=== PATIENT | female | born 1975 | race Caucasian/White ===

== ENCOUNTER 2017-09-23 09:49 | Emergency (ER) | payer OTHER ==
[~2017-09-23] VITALS: Ht 160 cm; Wt 81.7 kg
[~2017-09-23 09:49] MED LIST: ALBU90OI INH; AMOX500 PO; ASPI325 PO; AZIT250 PO; BENZ100A PO; CEPH500 PO; CITA20 PO; CYCL10 PO; DOXY100 PO; ESCI5; HYDACE5 PO; HYDACE5325 PO; IBUP200; IBUP400 PO; IBUP800; IBUP800 PO; META800; METPRE4DP PO; NAPR220 PO; NAPR500 PO; NAPR550 PO; NEOCOLOTSU OT; Naprosyn500 MG PO; Norco 5-325 Ta1 EACH PO; OMEP20ER; OXYACE7.5T PO; PRED20 PO; PROCODE120 PO; PROM25 PO; PSEU120ER PO; Permethrin60 GM TP; RXCEPH500 PO; RXCLIN PO; RXHYD5325 PO; RXOXYACE PO; Valium5 MG PO
[2017-09-23] MEDS ORDERED: Zithromax250 MG PO (11:27)
[2017-09-23] MEDS ORDERED: ALBU90OI INH (11:27)
[2017-09-23] MEDS ORDERED: Zofran8 MG PO (11:28)
== END 2017-09-23 11:34 | disposition home or self-care (01) ==
LOC: ER 09:49
DX: R05 Cough (principal); D89.9 Disorder involving the immune mechanism, unspecified; F17.200 Nicotine dependence, unspecified, uncomplicated; Z91.048 Other nonmedicinal substance allergy status; Z88.2 Allergy status to sulfonamides; Z79.82 Long term (current) use of aspirin; Z79.899 Other long term (current) drug therapy; Z90.710 Acquired absence of both cervix and uterus
CPT/HCPCS: 71046; 94640; 99284

== ENCOUNTER 2020-06-19 12:10 | Emergency (ER) | payer OTHER ==
[~2020-06-19] VITALS: Ht 157.5 cm; Wt 59.0 kg
[~2020-06-19 12:10] MED LIST changes: +KETO10 PO; +Zithromax250 MG PO; +Zofran8 MG PO
[2020-06-19 13:15] LABS: BASOPHILS ABSOLUTE AUTO 0.04 K/mm3 (0.00-0.23); BASOPHILS PERCENT AUTO 1 % (0-2); EOSINOPHILS ABSOLUTE AUTO 0.05 K/mm3 (0.00-0.68); EOSINOPHILS PERCENT AUTO 1 % (0-6); Hematocrit 45.1 % (33.0-51.0); IMMATURE GRAN ABSOLUTE AUTO 0.01 K/mm3 (0.00-0.10); IMMATURE GRAN PERCENT AUTO 0 % (0-1); LYMPHOCYTES ABSOLUTE AUTO 3.03 K/mm3 (0.84-5.20); LYMPHOCYTES PERCENT AUTO 37 % (21-46); MONOCYTES ABSOLUTE AUTO 0.57 K/mm3 (0.16-1.47); MONOCYTES PERCENT AUTO 7 % (4-13); Mean Corpuscular HGB 30.1 pg (26.0-34.0); Mean Corpuscular HGB Conc 33.3 g/dL (31.5-36.5); Mean Corpuscular Volume 91 fL (80-100); Mean Platelet Volume 9.5 fL (9.1-12.4); NEUTROPHILS ABSOLUTE AUTO 4.59 K/mm3 (1.96-9.15); NEUTROPHILS PERCENT AUTO 55 % (41-73); Platelet Count 355 K/mm3 (150-400); RDW Coefficient Variation 12.1 % (11.7-14.2); RDW Standard Deviation 40.1 fL (35.1-46.3); Red Blood Cell Count 4.98 M/mm3 (3.80-5.20); White Blood Cell Count 8.29 K/mm3 (4.00-11.30)
[2020-06-19 13:29] LABS: Alanine Aminotransfer (ALT/SGP 28 U/L (12-78); Albumin, Blood 3.8 g/dL (3.4-5.0); Albumin/Globulin Ratio 1.1 (0.8-1.8); Alk Phos 77 U/L (50-136); Anion Gap 7 mmol/L (6-16); Aspartate Aminotrans (AST/SGOT 21 U/L (12-37); Bilirubin, Total 0.6 mg/dL (0.1-1.0); Blood Urea Nitrogen 6 mg/dL (8-24); Bun/Creatinine Ratio 11.5 (12.0-20.0); CO2, Blood 24 mmol/L (21-32); Calcium, Blood 8.8 mg/dL (8.5-10.1); Chloride, Blood 112 mmol/L (98-108); Creatinine, Blood 0.52 mg/dL (0.40-1.00); Globulin, Blood 3.5 g/dL (2.2-4.0); Glomerular Filtration Rate >60 (60-); Glucose, Blood 96 mg/dL (70-99); Potassium, Blood 3.9 mmol/L (3.5-5.5); Sodium, Blood 143 mmol/L (136-145); Total Protein, Blood 7.3 g/dL (6.4-8.2)
[2020-06-19] MEDS ORDERED: PRED20 PO (15:49)
[2020-06-19] MEDS ORDERED: IBUP800 PO (15:49)
== END 2020-06-19 16:03 | disposition home or self-care (01) ==
LOC: ER 12:10
PROVIDERS: Physician Assistant
DX: R07.9 Chest pain, unspecified (principal); R06.02 Shortness of breath; R91.8 Other nonspecific abnormal finding of lung field; F17.200 Nicotine dependence, unspecified, uncomplicated; Z91.09 Other allergy status, other than to drugs and biological substances; Z88.2 Allergy status to sulfonamides
CPT/HCPCS: 36415; 71046; 71260; 80053; 84484; 85025; 93005; 93010; 96374; 96375; 99285-25; J1885; J2270; J2405; Q9967

== ENCOUNTER 2020-08-20 18:46 | Emergency (ER) | payer OTHER ==
[~2020-08-20] VITALS: Ht 157.5 cm; Wt 54.9 kg
[2020-08-20 19:44] LABS: BASOPHILS ABSOLUTE AUTO 0.08 K/mm3 (0.00-0.23); BASOPHILS PERCENT AUTO 1 % (0-2); EOSINOPHILS ABSOLUTE AUTO 0.09 K/mm3 (0.00-0.68); EOSINOPHILS PERCENT AUTO 1 % (0-6); Hematocrit 43.4 % (33.0-51.0); Hemoglobin 14.3 g/dL (11.5-16.0); IMMATURE GRAN ABSOLUTE AUTO 0.02 K/mm3 (0.00-0.10); IMMATURE GRAN PERCENT AUTO 0 % (0-1); LYMPHOCYTES ABSOLUTE AUTO 2.71 K/mm3 (0.84-5.20); LYMPHOCYTES PERCENT AUTO 33 % (21-46); MONOCYTES ABSOLUTE AUTO 0.45 K/mm3 (0.16-1.47); MONOCYTES PERCENT AUTO 6 % (4-13); Mean Corpuscular HGB 30.1 pg (26.0-34.0); Mean Corpuscular HGB Conc 32.9 g/dL (31.5-36.5); Mean Corpuscular Volume 91 fL (80-100); Mean Platelet Volume 9.4 fL (9.1-12.4); NEUTROPHILS ABSOLUTE AUTO 4.86 K/mm3 (1.96-9.15); NEUTROPHILS PERCENT AUTO 59 % (41-73); Platelet Count 312 K/mm3 (150-400); RDW Coefficient Variation 11.8 % (11.7-14.2); RDW Standard Deviation 39.8 fL (35.1-46.3); Red Blood Cell Count 4.75 M/mm3 (3.80-5.20); White Blood Cell Count 8.21 K/mm3 (4.00-11.30)
[2020-08-20 19:46] LABS: Alanine Aminotransfer (ALT/SGP 26 U/L (12-78); Albumin/Globulin Ratio 1.3 (0.8-1.8); Alk Phos 80 U/L (50-136); Anion Gap 6 mmol/L (6-16); Aspartate Aminotrans (AST/SGOT 18 U/L (12-37); Bilirubin, Total 0.5 mg/dL (0.1-1.0); Blood Urea Nitrogen 13 mg/dL (8-24); Bun/Creatinine Ratio 18.8 (12.0-20.0); CO2, Blood 26 mmol/L (21-32); Calcium, Blood 9.3 mg/dL (8.5-10.1); Chloride, Blood 107 mmol/L (98-108); Creatinine, Blood 0.69 mg/dL (0.40-1.00); Globulin, Blood 3.1 g/dL (2.2-4.0); Glomerular Filtration Rate >60 (60-); Glucose, Blood 79 mg/dL (70-99); Potassium, Blood 3.9 mmol/L (3.5-5.5); Sodium, Blood 139 mmol/L (136-145); Total Protein, Blood 7.1 g/dL (6.4-8.2)
[2020-08-20 20:37] LABS: Source, Urine Clean Catch
[2020-08-20 20:39] LABS: Appearance, Urine Clear (Clear); Bilirubin, Urine Neg (Neg); Blood, Urine 2+ (Neg); Color, Urine Yellow (P-Yellow); Glucose Qualitative, Urine Neg (Neg); Ketones, Urine Neg (Neg); Leukocyte Esterase, Urine Neg (Neg); Nitrite, Urine Neg (Neg); Protein, Urine Neg (Neg); Specific Gravity, Urine 1.005 (1.003-1.022); Urobilinogen, Urine NORM (Normal)
[2020-08-20 20:46] LABS: Bacteria Few /hpf; Squamous Epithelial Cells Few /hpf (Few); White Blood Cells, Urine 0-2 /hpf (0-5)
[2020-08-20] MEDS ORDERED: Cipro500 MG PO (22:18)
[2020-08-20] MEDS ORDERED: Flagyl500 MG PO (22:18)
== END 2020-08-20 22:35 | disposition home or self-care (01) ==
LOC: ER 18:46
PROVIDERS: Physician Assistant
DX: K52.9 Noninfective gastroenteritis and colitis, unspecified (principal); F17.200 Nicotine dependence, unspecified, uncomplicated; Z91.09 Other allergy status, other than to drugs and biological substances; Z88.2 Allergy status to sulfonamides
CPT/HCPCS: 36415; 74177; 80053; 81001; 83690; 85025; 99285-25; A9270-GY; Q9967

== ENCOUNTER 2021-07-12 17:15 | Emergency (ER) | payer OTHER ==
[~2021-07-12] VITALS: Ht 157.5 cm; Wt 54.4 kg
[~2021-07-12 17:15] MED LIST changes: +Cipro500 MG PO; +Flagyl500 MG PO
[2021-07-15 09:49] LABS: RPR Reactive (Nonreactive)
[2021-07-17 15:12] LABS: TREPONEMA PALLIDUM ANTIBODIES Reactive (Non Reactive)
== END 2021-07-12 19:33 | disposition home or self-care (01) ==
LOC: ER 17:15
PROVIDERS: Emergency Medicine
DX: N76.5 Ulceration of vagina (principal); Z88.2 Allergy status to sulfonamides; Z91.048 Other nonmedicinal substance allergy status; G47.33 Obstructive sleep apnea (adult) (pediatric); J45.909 Unspecified asthma, uncomplicated
CPT/HCPCS: 36415; 86592; 86593; 86694; 96372; 99283-25; J0561

== ENCOUNTER 2023-01-08 20:33 | Emergency (ER) | payer OTHER ==
[~2023-01-08] VITALS: Ht 170.2 cm; Wt 68.0 kg
[~2023-01-08 20:33] MED LIST changes: +EPIPEN0.3 MG/0.1 IM; +ONDA4 PO
[2023-01-08] MEDS ORDERED: IBUP600 PO (23:03)
[2023-01-08] MEDS ORDERED: Robaxin750 MG PO (23:03)
[2023-01-08] MEDS ORDERED: LIDOCAINE1 EAC1 TOP (23:03)
[2023-01-08 23:20] VITALS: BP 122/79
== END 2023-01-08 23:22 | disposition home or self-care (01) ==
LOC: ER 20:33
DX: S13.4XXA Sprain of ligaments of cervical spine, initial encounter (principal); M54.12 Radiculopathy, cervical region; X58.XXXA Exposure to other specified factors, initial encounter; Z91.030 Bee allergy status; Z91.048 Other nonmedicinal substance allergy status; Z88.2 Allergy status to sulfonamides; Z79.899 Other long term (current) drug therapy; J45.909 Unspecified asthma, uncomplicated; G47.33 Obstructive sleep apnea (adult) (pediatric); G43.909 Migraine, unspecified, not intractable, without status migrainosus; F17.210 Nicotine dependence, cigarettes, uncomplicated
CPT/HCPCS: 96374; 99283-25; A9270; J1885; J7512